=== PATIENT | male | born 1950 | race Caucasian/White ===

== ENCOUNTER 2016-08-27 18:05 | Inpatient (IN) | payer BC ==
[~2016-08-27] VITALS: Ht 172.7 cm; Wt 94.3 kg
[2016-08-27 18:28] LABS: BASOPHILS % (AUTO) 0.6 % (0.0-2.0); EOSINOPHILS # (AUTO) 0.2 /CMM (0.0-0.7); EOSINOPHILS % (AUTO) 2.1 % (0.0-6.0); HEMATOCRIT 47 % (39-51); HEMOGLOBIN 15.8 g/dL (13.5-17.5); LYMPHOCYTES # (AUTO) 1.9 /CMM (0.8-4.8); LYMPHOCYTES % (AUTO) 22.8 % (20.0-44.0); MEAN CORPUSCULAR HEMOGLOBIN 30 PG (26.0-33.0); MEAN CORPUSCULAR HGB CONC 34 g/dl (31.0-36.0); MEAN CORPUSCULAR VOLUME 90 fL (80-96); MONOCYTES # (AUTO) 0.6 /CMM (0.1-1.30); MONOCYTES % (AUTO) 6.9 % (2.0-12.0); NEUTROPHILS # (AUTO) 5.6 /CMM (1.8-8.9); NEUTROPHILS % (AUTO) 67.6 % (43.0-81.0); PLATELET COUNT (AUTO) 250 /CMM (150-450); RDW COEFFICIENT OF VARIATION 12.1 (11.5-15.0); RED BLOOD CELL COUNT(AUTO) 5.18 MIL/uL (4.5-6.0); WHITE BLOOD COUNT (AUTO) 8.3 K/uL (4.3-11.0)
[2016-08-27 18:43] LABS: CALCIUM, SERUM 8.3 mg/dL (8.5-10.1); CARBON DIOXIDE 26 mmol/L (21-32); CHLORIDE 109 mmol/L (98-107); CREATININE 1.2 mg/dL (0.6-1.3); GFR 61 mL/min (>60); GLUCOSE 100 mg/dL (74-106); POTASSIUM 3.9 mmol/L (3.5-5.1); SODIUM SERUM 143 mmol/L (136-145); UREA NITROGEN, BLOOD 20 mg/dL (7-18)
[2016-08-27 18:45] LABS: INR 1.13 (0.87-1.13); PROTHROMBIN TIME 11.9 SECS (9.5-12.7)
[2016-08-27 18:53] LABS: TROPONIN I < 0.017 ng/mL (0.00-0.056)
[2016-08-27] MEDS ORDERED: IV NS 0.9% 1,000 ML IV PRN (21:16)
[2016-08-27 21:30] VITALS: BP 136/93
[2016-08-27] MEDS ORDERED: ONDANSETRON HCL/PF 4 MG/2 ML VIAL IVP PRN (21:30)
[2016-08-27] MEDS ORDERED: MAGNESIUM HYDROXIDE 30 ML UDC PO PRN (21:30)
[2016-08-27] MEDS ORDERED: Z GUARD REMEDY 2 OZ OINT TP PRN (21:30)
[2016-08-27] MEDS ORDERED: MAG HYDROX/AL HYDROX/SIMETH 30 ML UDC PO PRN (21:30)
[2016-08-27] MEDS ORDERED: HYDROCODONE/APAP 5/325MG 1 EACH TABLET PO PRN (21:30)
[2016-08-27] MEDS ORDERED: ACETAMINOPHEN 325 MG TABLET PO PRN (21:30)
[2016-08-27] MEDS ORDERED: IV SET PRIMARY PUMP SET 1 EA INFUS.SET MC ONE (22:26)
[2016-08-27] MEDS ORDERED: DIAZEPAM 5 MG TABLET ONE (23:58)
[2016-08-28] VITALS: BP 126/75
[2016-08-28] MEDS ORDERED: DIAZEPAM 5 MG TABLET PO ONE
[2016-08-28] MEDS ORDERED: DIAZEPAM 5 MG TABLET PO PRN ×2
[2016-08-28] MEDS ORDERED: DIAZ5TAB4 PO (03:13)
[2016-08-28] MEDS ORDERED: BUPR150T12 PO (03:13)
[2016-08-28] MEDS ORDERED: LANS30CA56 PO (03:13)
[2016-08-28 04:00] VITALS: BP 136/86
[2016-08-28 05:47] LABS: BASOPHILS % (AUTO) 0.4 % (0.0-2.0); EOSINOPHILS # (AUTO) 0.2 /CMM (0.0-0.7); EOSINOPHILS % (AUTO) 2.8 % (0.0-6.0); HEMATOCRIT 44 % (39-51); HEMOGLOBIN 14.9 g/dL (13.5-17.5); LYMPHOCYTES # (AUTO) 1.7 /CMM (0.8-4.8); LYMPHOCYTES % (AUTO) 22.2 % (20.0-44.0); MEAN CORPUSCULAR HEMOGLOBIN 31 PG (26.0-33.0); MEAN CORPUSCULAR HGB CONC 34 g/dl (31.0-36.0); MEAN CORPUSCULAR VOLUME 90 fL (80-96); MONOCYTES # (AUTO) 0.7 /CMM (0.1-1.30); MONOCYTES % (AUTO) 8.9 % (2.0-12.0); NEUTROPHILS # (AUTO) 4.9 /CMM (1.8-8.9); NEUTROPHILS % (AUTO) 65.7 % (43.0-81.0); PLATELET COUNT (AUTO) 225 /CMM (150-450); RED BLOOD CELL COUNT(AUTO) 4.84 MIL/uL (4.5-6.0); WHITE BLOOD COUNT (AUTO) 7.5 K/uL (4.3-11.0)
[2016-08-28 06:07] LABS: ALANINE AMINOTRANSFERASE 28 U/L (12-78); ALBUMIN 3.2 g/dL (3.4-5.0); ALKALINE PHOSPHATASE 62 U/L (46-116); ASPARTATE AMINOTRANSFERASE 17 U/L (15-37); BILIRUBIN,TOTAL 0.4 mg/dL (0.2-1.0); CARBON DIOXIDE 28 mmol/L (21-32); CHLORIDE 109 mmol/L (98-107); CREATININE 1.1 mg/dL (0.6-1.3); GFR 67 mL/min (>60); GLUCOSE 86 mg/dL (74-106); PHOSPHORUS 3.7 mg/dL (2.5-4.9); POTASSIUM 3.9 mmol/L (3.5-5.1); SODIUM SERUM 142 mmol/L (136-145); TOTAL PROTEIN, SERUM 5.9 g/dL (6.4-8.2); TROPONIN I < 0.017 ng/mL (0.00-0.056); UREA NITROGEN, BLOOD 20 mg/dL (7-18)
[2016-08-28 06:14] LABS: CHOLESTEROL 148 mg/dL (<200); HDL CHOLESTEROL 29 mg/dL (40-60); LDL 104 mg/dL (0-99); THYROID STIMULATING HORMONE 2.451 uIU/mL (0.358-3.74); TRIGLYCERIDES 133 mg/dL (30-150)
[2016-08-28 06:58] VITALS: BP 121/75
[2016-08-28] MEDS ORDERED: PANTOPRAZOLE 40 MG TABLET.DR PO SCH (07:30)
[2016-08-28 08:00] VITALS: BP 121/75
[2016-08-28 08:37] VITALS: BP_SYST 127; BP_SYST 130; BP_SYST 139; BP_DIAS 78; BP_DIAS 81; BP_DIAS 94
[2016-08-28] MEDS ORDERED: ASPIRIN 81 MG TAB.CHEW PO SCH (09:00)
[2016-08-28] MEDS ORDERED: ASPI81TA2 PO (10:57)
== END 2016-08-28 11:55 | disposition home or self-care (01) | DRG 73 ==
LOC: ER 18:08 → TELE 20:34
PROVIDERS: ADMIT Contractor; ATTEND Contractor
DX: G90.8 Other disorders of autonomic nervous system (principal); N17.0 Acute kidney failure with tubular necrosis; K21.9 Gastro-esophageal reflux disease without esophagitis; F32.9 Major depressive disorder, single episode, unspecified
CPT/HCPCS: 36415; 70450-TC; 71010-TC; 80048-TC; 80053-TC; 80061-TC; 83735-TC; 84100-TC; 84443-TC; 84484-TC; 85025-TC; 85730-TC; 87081-TC; 93307-TC; 93880-TC; A4606; J7030; Z7610